=== PATIENT | female | born 1950 ===

== ENCOUNTER 2024-05-13 21:38 | Emergency (ER) | payer OTHER, MEDICARE ==
[~2024-05-13] VITALS: Ht 170.2 cm; Wt 59.0 kg
[~2024-05-13 21:38] MED LIST: BENZ100A PO; IPRAT-ALBUT 0.5-3 ML INH; QVAR REDIHALE10.6 G2; [UNRECOGNIZED DRUG - OTHER]
[2024-05-13 21:53] VITALS: BP 165/97
[2024-05-13] MEDS ORDERED: TraMADol HCl 50 MG Tab PO ONE (22:55)
[2024-05-13] MEDS ORDERED: Ultram50 MG PO (23:02)
== END 2024-05-13 23:12 | disposition home or self-care (01) ==
LOC: ER 21:38
DX: S52.501A Unspecified fracture of the lower end of right radius, initial encounter for closed fracture (principal); S52.611A Displaced fracture of right ulna styloid process, initial encounter for closed fracture; W01.0XXA Fall on same level from slipping, tripping and stumbling without subsequent striking against object, initial encounter; Z88.5 Allergy status to narcotic agent; Z79.899 Other long term (current) drug therapy
CPT/HCPCS: 29105; 73110; 99283-25; A9270

== ENCOUNTER 2024-05-26 09:20 | Day surgery (SDC) | payer MEDICARE, OTHER ==
[~2024-05-26] VITALS: Ht 170.2 cm; Wt 60.1 kg
[~2024-05-26 09:20] MED LIST changes: +Bupivacaine 0.5% HCl 5 MG/ML 30MLVIAL ONE; +Dexamethasone Sod Phos 10 MG/ML 1ML VIAL ONE; +FentaNYL Citrate 50 MCG/ML 2 ML Injection ONE; +Midazolam HCl 1MG / ML 2ML Vial ONE; +Ondansetron HCl 2 MG / ML 2ML Vial ONE; +Ultram50 MG PO; +propofoL 20 ML IV ONE
[2024-05-26] MEDS ORDERED: CeFAZolin Sodium 1000 mg Vial ONE ×2 (09:24→10:50)
[2024-05-26] MEDS ORDERED: NS 50 ML IV ONE (09:25)
[2024-05-26] MEDS ORDERED: CeFAZolin Sodium 2,000 MG VIAL ONE (09:25)
[2024-05-26] MEDS ORDERED: Lactated Ringer's 1,000 ML IV ONE (10:00)
--- NOTE | 2024-05-26 10:27 | NUR ---
05/26/24 1027 Valencia Price BEDSIDE TIMEOUT FOR NERVE BLOCK COMPLETED AT 1016 WITH THIS RN, GILL RN, PT AND ANESTHESIA PROVIDER. BLOCK START TIME 1021. SPO2 MONITORED DURING PROCEDURE, SATS MAINTAINED WNL. NO COMPLICATIONS. END TIME 1026.
[2024-05-26] MEDS ORDERED: ePHEDrine Sulfate 50 MG/ML 1ML Injection ONE (11:13)
[2024-05-26 12:15] VITALS: BP 124/66
== END 2024-05-26 12:55 | disposition home or self-care (01) ==
LOC: ORSCSDS 09:20
PROVIDERS: Orthopaedic Surgery
PROC: 0PSH04Z Reposition Right Radius with Internal Fixation Device, Open Approach (ICD-10-PCS; principal; 2024-05-26 10:30)
DX: S52.501A Unspecified fracture of the lower end of right radius, initial encounter for closed fracture (principal); W18.09XA Striking against other object with subsequent fall, initial encounter; J45.909 Unspecified asthma, uncomplicated
CPT/HCPCS: C1713; J0690; J1100; J2250; J2405; J2704; J3010

== ENCOUNTER 2024-06-10 20:19 | Emergency (ER) | payer MEDICARE, OTHER ==
[~2024-06-10] VITALS: Ht 172.7 cm; Wt 59.0 kg
[~2024-06-10 20:19] MED LIST changes: -Bupivacaine 0.5% HCl 5 MG/ML 30MLVIAL ONE; -Dexamethasone Sod Phos 10 MG/ML 1ML VIAL ONE; -FentaNYL Citrate 50 MCG/ML 2 ML Injection ONE; -Midazolam HCl 1MG / ML 2ML Vial ONE; -Ondansetron HCl 2 MG / ML 2ML Vial ONE; -propofoL 20 ML IV ONE
[2024-06-10 20:38] VITALS: BP 154/79
== END 2024-06-10 22:26 | disposition home or self-care (01) ==
LOC: ER 20:19
DX: Z48.89 Encounter for other specified surgical aftercare (principal); Z79.899 Other long term (current) drug therapy; Z88.5 Allergy status to narcotic agent; Z91.018 Allergy to other foods; Z91.048 Other nonmedicinal substance allergy status
CPT/HCPCS: 99282